=== PATIENT | female | born 1935 | race Caucasian/White ===

== ENCOUNTER 2016-12-31 20:20 | Inpatient (IN) | payer MEDICARE ==
[~2016-12-31] VITALS: Ht 152.4 cm; Wt 95.3 kg
[2016-12-31 20:32] VITALS: BP 154/66; PULSE 71; RESP 24; O2SAT 98
[2016-12-31] MEDS ORDERED: 0.9% Sodium Chloride 1,000 ML IV ONE (21:03)
[2016-12-31 21:26] LABS: BASOPHILS % (AUTO) 0.1 % (0-3); EOSINOPHILS % (AUTO) 0 % (0-5); MONOCYTES % (AUTO) 5.2 % (4-12); Mean Corpuscular Hemoglobin 28.4 pg (27.0-35.0); Mean Corpuscular Volume 87.8 fL (81-100); NEUTROPHILS % (AUTO) 90.4 % (40-74); Platelet Count 379 bil/L (150-400)
--- NOTE | 2016-12-31 21:39 | DRSVH ---
PROCEDURE: X-RAY CHEST ONE VIEW, PORTABLE ([id number]) INDICATIONS: altered mental status TECHNIQUE: One view of the chest was acquired. COMPARISON: [facility], CR, XR CHEST 2VW, 12/27/2016, 16:26. FINDINGS: Surgical changes and devices: Surgical clips in the left breast and axilla. Lungs and pleura: There is a focal density in the left lower lobe suspicious for remote pneumonia. N o pleural effusions or pneumothorax. Mediastinum: Mediastinal contours appear normal. Heart size is normal. Bones and chest wall: No suspicious bony lesions. Overlying soft tissues appear unremarkable. IMPRESSION: Focal density in the left lower lobe suspicious for pneumonia. Recommend followup to [facility]. Dictated by: Scooter Medeiros M.D. on 12/31/2016 at 21:36 Approved by: Scooter Medeiros M.D. on 12/31/2016 at 21:37
[2016-12-31 22:02] LABS: Magnesium 2.1 mg/dL (1.6-2.6)
[2016-12-31 22:13] LABS: APPEARANCE,URINE CLEAR (CLEAR,HAZY); COLOR,URINE STRAW (YELLOW); OCCULT BLOOD,URINE NEGATIVE (NEGATIVE); PH,URINE 6.5 (5.0-8.0); UROBILINOGEN,URINE NORMAL (NORMAL)
[2016-12-31] MEDS ORDERED: cefTRIAXone Inj 2,000 MG in Dextrose 5% Minibag Plus 50 ML IV ONE (23:30)
[2016-12-31] MEDS ORDERED: Azithromycin Inj 500 MG in Dextrose 5% w/Vial Mate 250 ML IV ONE (23:30)
[2016-12-31] MEDS ORDERED: Vancomycin Dose per Pharmacist XX ONE (23:35)
[2016-12-31] MEDS ORDERED: Cefepime Inj 2,000 MG in Dextrose 5% Minibag Plus 100 ML IV ONE (23:35)
[2016-12-31] MEDS ORDERED: levoFLOXacin Inj 750 MG in IV Premix 1 EACH IV ONE (23:35)
[2016-12-31] MEDS ORDERED: Vancomycin Inj 1,750 MG in 0.9% Sodium Chloride 500 ML IV ONE (23:45)
[2016-12-31] MEDS ORDERED: Alum-Mag Hydrox-Simeth 30 mL Suspension PO PRN (23:45)
[2016-12-31] MEDS ORDERED: Polyethylene Glycol (PEG) 17 Gm Powder PO PRN (23:45)
[2016-12-31] MEDS ORDERED: FLUT15.88 NS (23:54)
[2016-12-31] MEDS ORDERED: BECL8.7A6 INHALATION (23:54)
[2016-12-31] MEDS ORDERED: ATOR20TA PO (23:54)
[2016-12-31] MEDS ORDERED: FURO-129 PO (23:54)
[2016-12-31] MEDS ORDERED: SERT100T9 PO (23:54)
[2016-12-31] MEDS ORDERED: DONE10TA42 PO (23:54)
[2016-12-31] MEDS ORDERED: ALBU8.5H2 INHALATION (23:54)
[2016-12-31] MEDS ORDERED: MEMA28CA PO (23:54)
[2016-12-31] MEDS ORDERED: PRE20 PO (23:54)
[2017-01-01] VITALS (14 sets, daily range): BP systolic 124–174; BP diastolic 72–93; PULSE 63–100; RESP 15–22; O2SAT 96–98
--- NOTE | 2017-01-01 00:02 | ED.REPORT ---
HPI-General Illness Date of Service Jan 01, 2017 ED Provider: Mitch Way MD An 81 year old female with a history of dementia, hypertension, stroke and asthma is brought to the ED via EMS due to weakness. The pt was noted by [place] staff to be confused, weak and diaphoretic today with an elevated blood pressure. This is been persistent throughout the day without any notable alleviating or exacerbating factors. Described as abnormal, not typical for her. Per pt's family, the pt was also experiencing abnormal dyspnea on exertion with lower extremity edema eight days ago. She had a chest x-ray at that time, but the pt's family has not heard the results. The pt was put on a diuretic and Prednisone several days ago. The pt has been experiencing a rash for three months, but does not believe that this is related to her current symptoms. Nursing Notes Stated Complaint: ACUTE PNEUMONIA Chief Complaint: General Complaint Nursing Notes Reviewed: Yes Allergies: Coded Allergies: No Known Allergies (Unverified , 12/31/16) Scheduled Atorvastatin (Lipitor) 20 Mg Tablet 20 MG PO DAILY Beclomethasone Dipropionate (Qvar) 8.7 Gm Aer.w.adap 1 PUFF INHALATION BID Donepezil (Donepezil) 10 Mg Tablet 10 MG PO QAM Fluticasone Propionate (Fluticasone Propionate) 50 Mcg/Actuation Homer.susp 1 SPRAYS NS BID Furosemide (Lasix) 20 Mg Tablet 10 MG PO QAM Memantine HCl (Namenda-XR) 28 Mg Cap.spr.24 28 MG PO DAILY Prednisone (PredniSONE) 20 Mg Tablet 20 MG PO DAILY FOR 1 MORE DAY Sertraline HCl (Sertraline) 100 Mg Tablet 100 MG PO QAM Scheduled PRN Albuterol HFA (Proair HFA) 8.5 Gm Hfa.aer.ad 2 PUFFS INHALATION Q4H PRN PRN For Shortness of Breath General Time Seen by MD: 20:48 Chief Complaint Weakness Hx Obtained From: Patient, Other family..., EMS Arrived By: Ambulance Sudden in Onset?: No Symptom Duration: Since onset Recent Healthcare: Recent doctor visit Similar Sx Previous: No Past Medical History Past Medical History dementia stroke 2013 asthma Reports: Hypertension Past Surgical History lumpectomy Reports: Cholecystectomy, Hysterectomy Smoking History Never Smoker Social History lives at [facility] Other Social History: Good social support Review of Systems lower extremity edema hypertension Full Review of Systems Constitutional: Reports: Weakness - generalized Respiratory: Denies: Non-productive cough Cardiovascular: Reports: Dyspnea on exertion Musculoskeletal: Denies: Back pain, Neck pain Skin: Reports Diaphoresis, Reports Rash Neurologic: Reports: Confusion Complete sys rev & neg: except as marked. Physical Exam Constitutional: Well-developed, well-nourished elderly female sitting up in bed. Not diaphoretic. Head: Normocephalic and atraumatic. Mouth/Throat: Oropharynx is clear and moist. No oropharyngeal exudate. Eyes: EOM are normal. Pupils are equal, round, and reactive to light. Neck: Supple, no tracheal deviation. Cardiovascular: Normal rate, regular rhythm. Equal and intact distal pulses throughout. Pulmonary/Chest: Rhonchi at left base. No respiratory distress. Abdominal: Soft. No distension. There is no tenderness, rebound, or guarding. Bowel sounds present. Musculoskeletal: Range of motion grossly intact, moving all extremities. Trace edema to bilateral lower extremities. Neurological: AOx3. Grossly nonfocal exam. Strength and sensation intact and equal to bilateral upper and lower extremities. Skin: Warm and dry. Scattered excoriations to back and trunk, as well as her extremities. Psychiatric: Appropriate mood and affect. Behavior appears normal. Vital Signs Vital Signs Date Time Temp Pulse Resp B/P Pulse Ox O2 Delivery O2 Flow Rate FiO2 12/31/16 20:32 36.6 71 24 154/66 98 Room Air Initial VS: Reviewed Interpretation & Diagnostics Lab Results Interpretation Result Diagram: 12/31/16211912/31/162119 Test 12/31/16 21:20 12/31/16 21:32 12/31/16 21:45 White Blood Count 13.8th/mm3 (3.8-10.1) Red Blood Count 3.70mil/mm3 (3.90-5.20) Hemoglobin 10.5g/dL (12.0-15.6) Hematocrit 32.5% (35.0-46.0) Mean Corpuscular Volume 87.8fL (81-100) Mean Corpuscular Hemoglobin 28.4pg (27.0-35.0) Mean Corpuscular Hemoglobin Concent 32.3% (32.0-37.0) Red Cell Distribution Width 13.5% (12.3-15.4) Platelet Count 379bil/L (150-400) Neutrophils (%) (Auto) 90.4% (40-74) Lymphocytes (%) (Auto) 3.8% (14-46) Monocytes (%) (Auto) 5.2% (4-12) Eosinophils (%) (Auto) 0% (0-5) Basophils (%) (Auto) 0.1% (0-3) Sodium Level 127mEq/L (134-144) Potassium Level 5.0mEq/L (3.5-5.2) Chloride Level 89mEq/L (97-108) Carbon Dioxide Level 23mmol/L (18-29) Blood Urea Nitrogen 20mg/dL (8-27) Creatinine 0.99mg/dL (0.57-1.00) Estimat Glomerular Filtration Rate 77mL/min (>59) Glucose Level 127mg/dL (60-99) Calcium Level 9.1mg/dL (8.5-10.1) Magnesium Level 2.1mg/dL (1.6-2.6) Total Bilirubin 0.2mg/dL (0.0-1.2) Aspartate Amino Transf (AST/SGOT) 24U/L (0-50) Alanine Aminotransferase (ALT/SGPT) 24U/L (0-32) Alkaline Phosphatase 92U/L (25-165) Troponin T 0.010ug/L (0.0-0.011) Total Protein 7.1g/dL (6.4-8.4) Albumin 3.6g/dL (3.4-5.0) Procalcitonin 0.07ng/mL (0.00-0.08) Salicylates Level 3.0ug/mL (30-250) Acetaminophen Level 15.0ug/mL Rx (10-25) Alcohols < 10mg/dL (0-10) Lactic Acid Level 1.3mmol/L (0.4-2.0) Urine Color Straw (YELLOW) Urine Appearance Clear (CLEAR,HAZY) Urine pH 6.5 (5.0-8.0) Urine Specific Chandler 1.005 (1.003-1.035) Urine Protein Negativemg/dL (NEG,TRACE) Urine Glucose (UA) Negativemg/dL (NEGATIVE) Urine Ketones Negativemg/dL (NEGATIVE) Urine Occult Blood Negative (NEGATIVE) Urine Nitrite Negative (NEGATIVE) Urine Bilirubin Negative (NEGATIVE) Urine Urobilinogen Normalmg/dL (NORMAL) Urine Leukocyte Esterase Small (NEGATIVE) Urine RBC 0-2/hpf (0-2) Urine WBC 0-5/hpf (0-5) Urine Epithelial Cells Few/hpf (NONE-MOD) Urine Crystals None seen (NONE SEEN) Urine Bacteria Few/hpf (NONE-FEW) Urine Hyaline Casts None/lpf (NONE) Urine Granular Casts None seen (NONE SEEN) Urine Waxy Casts None seen (NONE SEEN) Urine Red Blood Cell Casts None seen (NONE SEEN) Urine White Blood Cell Casts None seen (NONE SEEN) Urine Mucus None seen (None Seen) Urine Trichomonas None seen (NONE SEEN) Urine Yeast None (NONE SEEN) Urinalysis Comment None Urine Culture Reflexed Indicated ECG Interpretation ECG Interpretation: normal sinus rhythm with a rate of 63 Time: 21:19 Interpreted by: ED physician X-Ray Chest Interpretation Chest Xray Interpretation: IMPRESSION: Focal density in the left lower lobe suspicious for pneumonia. Recommend followup to resolution. Dictated by: Scooter Medeiros M.D. on 12/31/2016 at 21:36 Approved by: Scooter Medeiros M.D. on 12/31/2016 at 21:37 Interpretation / Wet Read by: Interpret - Radiologist CT Head Interpretation CONCLUSION: No acute intracranial findings. Chronic changes detailed above. Small air-fluid level in the left sphenoid sinus. Interpretation / Wet Read by: Interpret - Radiologist Re-Eval/Medical Decision Med Decision/Clinical Course In summary, 81-year-old female presenting to the ED for evaluation of multiple complaints, most notably generalized weakness and not acting right, as well as dyspnea. Her generalized weakness and altered mental status was noted this morning. Upon initial evaluation, patient is well-appearing. Not having any significant complaints at this time, however history is somewhat limited secondary to her dementia. Family states that she has been having some dyspnea on exertion, no chest pain. Troponin negative; EKG with no acute ischemic changes. Rest of workup notable for a negative urinalysis, sodium of 127, lactic acid 1.3, white blood cell count of 13.8 with a left shift. Her chest x- ray demonstrates a left lower lobe pneumonia. Given the above, plan admission for further management and evaluation. Patient started on broad-spectrum antibiotics for healthcare associated pneumonia here in the ED. Family agreeable to the plan as stated, no further questions. Time of Eval: 23:20 Patient Status: Condition improved Re-Evaluation/Progress Note: Pt rechecked, who is stable. The diagnosis and plan for admission are discussed. The pt and her family understand and agree with the plan. All questions are addressed at this time. Consultation : Referral / Consult Name: Jolanta Galdamez DO Consulted With: Hospitalist Call Returned at: 23:30 Outsole Rounder: Agrees with eval, Agrees with plan, Accepts admit Note: Spoke with Dr. Galdamez, hospitalist, regarding pt's case. Dr. Galdamez agrees with the evaluation and agrees to admit the pt. Counseled Regarding: Diagnosis, Lab results, Need for admission Discharge & Departure Primary Impression: Community acquired pneumonia Additional Impressions: Hyponatremia Altered mental status Altered mental status type: unspecified Qualified Code: R41.82 - Altered mental status, unspecified Disposition: ADMITTED TO HOSPITAL Discharge Condition All VS Reviewed: Yes Condition: Stable Referrals: Titi Vaughn MD (PCP) Loreta Attestation Portions of this note were transcribed by Emiliana Clay. I, Dr. Way personally performed the history, physical exam and medical decision-making; I reviewed and confirmed the accuracy of the information in the transcribed note. Signed by: Loreta Fofana, 01/01/2017 and 0017. copies to: Titi Vaughn MD, William B MD Jan 01, 2017 00:02 EMILIANA CLAY Jan 01, 2017 00:11
[2017-01-01] MEDS ORDERED: Albuterol-Ipratropium 3 mL Inhalation Solution NEB SCH (00:30)
[2017-01-01] MEDS: 0.9% Sodium Chloride 1,000 ML IV SCH ×2 (01:00→21:13)
--- NOTE | 2017-01-01 01:00 | NUR ---
Admit MPC from ED A & O pt arrived to unit at 0020 via stretcher with a RN and family at bedside. Pt with short term memory loss since last CVA, per son. Resides at [facility]. [place] [facility] [place] Per report, ceftriaxone complete in ED, Levofloxacin and Vanco arrived with pt, Levo infusing now. BP noted to be high and pitting edema in MD SUSAN notified. IVF rate will be changing. Pt denies pain. c/o overall skin itching-ongoing for >2 months. Physician in to see pt. Med rec complete by Rx. Pt and family oriented to room and facility. Deny having questions. Bed in low position, upper rails up, call light in reach. Will continue to monitor.
[2017-01-01] MEDS ORDERED: Albuterol 2.5 mg/3 mL Inhalation Solution NEB PRN (01:30)
[2017-01-01] MEDS ORDERED: hydrOXYzine Pamoate 25 mg Capsule PO PRN (01:30)
[2017-01-01] MEDS: Heparin 5,000 Unit/mL Inj SUBQ SCH ×3 (01:43→16:43)
--- NOTE | 2017-01-01 01:51 | PCM.HPMED ---
Subjective Date of Service Dec 31, 2016 Primary Provider: Admitting Physician: Primary Care Physician: Titi Vaughn MD Attending Physician: . Admit Status: From the Emergency Department, Full Admit Chief Complaint: Shortness of breath. . History of Present Illness: Aure Tom is an 81-year-old female with a past medical history significant for dementia, short-term memory loss secondary to previous CVA, hyperlipidemia, and COPD who was brought to [facility] emergency department via EMS due to shortness of breath and generalized weakness. The patient's son and [id number] were present for the entire interview and provided significant detail regarding the history of present illness. The patient resides at [facility] and was noted to have profuse diaphoresis and dyspnea with exertion. Per the patient's family, she has significant short- term memory loss with dementia and is no more confused than at baseline. The patient endorses shortness of breath, malaise, and pruritus secondary to chronic rash. The patient was also noted to have developed lower extremity edema approximately 8 days ago that she was seen for by her PCP and an echocardiogram was ordered but not yet obtained to rule out heart failure. The patient has been on prednisone for chronic rash and she is scheduled to be seen by dermatology as an outpatient. The patient denies headache, vision changes, sore throat, rhinitis, chest pain, abdominal pain, nausea, vomiting, fever, chills, dysuria, diarrhea or constipation. Vital signs in the ER: Temperature 36.6. Pulse 71. Respiratory rate 24. Blood pressure 154/66. Pulse ox 98% on room air. She was given 1 L of NS and cefepime 2 g 1[address] PCP [address] Dr[address] Titi Vaughn. . Review of Systems: A comprehensive review of systems was conducted with the patient and found to be negative except as above in the History of Present Illness. . Allergies Coded Allergies: No Known Allergies (Unverified , 12/31/16) Home Medications Albuterol 2 puffs every 4 hours as needed for shortness of breath. Atorvastatin 20 mg daily at bedtime. Qvar 1 puff twice a day. Donepezil 10 mg daily. Flonase one spray intranasally twice a day Furosemide 10 mg daily. Memantine 20 mg daily. Prednisone 20 mg daily until 01/02/2017. Sertraline 100 mg daily. PMH 1. Dementia. 2. COPD/asthma. 3. Hyperlipidemia. 4. Depression. 5. Chronic kidney disease stage III. 6. Short-term memory loss secondary to CVA. . Surgical History 1. Hysterectomy. 2. Cholecystectomy. 3. Tonsillectomy. 4. Bilateral cataract extraction. 5. Right lumpectomy. . Family History Father who of an OR in his 70s. Mother who had dementia. Sr. who had dementia. She has a son with MS. . Social History Hx Alcohol Use: No Hx Substance Use: No Hx Tobacco Use: No Living Arrangement: Assisted Living ([place]) Additional Information The patient is 1. She was born and raised in [place]. She has 4 sons. 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 . Exam Vital Signs Vital Sign - Last Date Time Temp Pulse Resp B/P Pulse Ox O2 Delivery O2 Flow Rate FiO2 12/31/16 20:32 36.6 71 24 154/66 98 Room Air Exam General: Elderly female lying in bed and in no acute distress, well-developed, well-nourished, and appropriately interactive. No acute distress, well- developed, well-nourished, appropriately interactive HEENT: Normocephalic, atraumatic. External ears without defect. Pupils equal, round, and reactive to light. Anicteric sclerae, moist conjunctivae, and no lid lag. Oropharynx free of erythema and cobble stoning with moist mucosa. Neck: Supple with full range of motion. No jugular venous distension. No bruits. No lymphadenopathy or thyromegaly. Cardiovascular: Regular rate and rhythm with no murmurs, rubs, or gallops appreciated. Pulmonary: Scattered rhonchi predominantly at left base, no wheezes or rales. Normal respiratory effort with no use of accessory muscles. Abdomen: Soft, nontender, nondistended, bowel sounds present. No hepatosplenomegaly or masses appreciated. Extremities: No clubbing or cyanosis. Mild trace pitting edema to pretibial area bilaterally, left greater than right. Skin: Normal temperature, turgor, and texture; no ulcers, or subcutaneous nodules appreciated. Diffuse excoriations over her entire body. Neurological: Short-term memory deficit. Cranial nerves grossly intact. Known mild gait impairment but does not use assistive devices. Psychiatric: Normal mood and affect. Alert and oriented to person, place, and time. . Lab and Diagnostics Labs Item Value Date Time Lactic Acid Level 1.3 mmol/L 12/31/162131 Magnesium Level 2.1 mg/dL 12/31/162119 Total Bilirubin 0.2 mg/dL 12/31/162119 Aspartate Amino Transf (AST/SGOT) 24 U/L 12/31/162119 Alanine Aminotransferase (ALT/SGPT) 24 U/L 12/31/162119 Alkaline Phosphatase 92 U/L 12/31/162119 Troponin T 0.010 ug/L 12/31/162119 Total Protein 7.1 g/dL 12/31/162119 Albumin 3.6 g/dL 12/31/162119 Result Diagram: 12/31/16211912/31/162119 Microbiology Urine culture pending. Blood culture 2 pending. . X-Rays, CTs and MRIs X-RAY CHEST ONE VIEW, PORTABLE IMPRESSION: Focal density in the left lower lobe suspicious for pneumonia. Recommend followup to resolution. Dictated by: Scooter Medeiros M.D. on 12/31/2016 at 21:36 CT BRAIN WITHOUT CONTRAST Preliminary [place] read: No intracranial abnormalities. Chronic changes as noted above. Small air-fluid level in the left sphenoid sinus. Bg Duncan MD . 12-lead ECG EKG: Normal sinus rhythm, heart rate 63, prolonged QTC of 454 ms otherwise normal intervals, normal R-wave progression, no pathological Q waves or acute ischemic changes such as ST elevation or depression. . Assessment & Plan Aure Tom is an 81-year-old female with a past medical history significant for dementia, short-term memory loss secondary to CVA, hyperlipidemia, and COPD who was brought to [facility] emergency department via EMS due to shortness of breath and generalized weakness. Sepsis, acute, POA -patient presented with WBC >12 and RR >20 -source pulmonary -treatment as below 1. Acute community acquired pneumonia, present on admission. Active. - Patient presented with dyspnea, diaphoresis, malaise, and generalized weakness with leukocytosis of 13.8. - Differential diagnosis includes possible COPD exacerbation versus less likely new onset CHF. - Chest x-ray reviewed by admitting team on admission and demonstrated focal density in the left lower lobe suspicious for pneumonia, as above. - CT brain demonstrated no acute intracranial abnormalities, as above. - Lactic acid normal at 1.3. - Ordered complete pneumonia workup including: Legionella and strep pneumoniae urine antigens, respiratory viral PCR, sputum gram stain and culture, and blood cultures 2, pending. - Ordered MRSA screen, pending. - Ordered duo nebs 4 times a day while awake and albuterol nebs every 4 hours as needed for shortness of breath. - Continue cefepime 2 g every 12 hours and azithromycin 500 daily for possible COPD exacerbation. - Continue prednisone 20 mg daily for atopic dermatitis scheduled until tomorrow which would concurrently treat possible COPD exacerbation. - Ordered echocardiogram to rule out CHF. - Ordered pro-calcitonin, pending. - Continue furosemide 10 mg daily. - Continue supplemental oxygen as needed and titrate off as tolerated. 2. Acute hyponatremia, present on admission. Active. - Likely SIADH secondary to pneumonia. - Initial sodium of 127. - Received 1L of NS in the ER and continued conservative IV fluid hydration with NS at 80 ml/hr. Chronic problems: 3. Dementia, present on admission. Presumed stable. - The patient has history of a CVA 7-8 years ago with short-term memory loss, as well as, dementia. - Continue donepezil and memantine. 4. COPD, present on admission. Presumed stable. - Continue duo nebs 4 times a day while awake and albuterol nebs every 4 hours as needed for shortness of breath. - Continue Qvar twice daily. - Continue azithromycin daily for possible COPD exacerbation. - The patient has been on prednisone 20 mg for atopic dermatitis scheduled until tomorrow which would concurrently treat possible COPD exacerbation. 5. Hyperlipidemia, present on admission. - Continue atorvastatin 20 mg daily at bedtime. 6. Depression, present on admission. - Continue sertraline 100 mg daily. 7. Chronic kidney disease stage III, present on admission. - Baseline creatinine 1.0-1.3. Creatinine 0.99. - Avoid nephrotoxic agents. - Continue IV fluid hydration with NS at 80 ml/hr. 8. Atopic dermatitis, present on admission. Active. - Ordered hydroxyzine 25 mg every 6 hours as needed for pruritus. - Ordered hydrocortisone cream to be applied as needed for pruritus. - The patient is scheduled to see dermatology as an outpatient. PRN antiemetics: Zofran and Maalox. PRN bowel regimen: Senna and MiraLAX. PRN analgesics: Tylenol. Patient is admitted under inpatient status with expected length of stay greater than 2 midnights due to severity of presenting symptoms, risk of adverse event, and complexity of treatment plan. . VTE Prophylaxis: Sub-Q Heparin (Unfractionated) Resuscitation Status: CPR: Attempt Resuscitation Attending Statement The patient was seen and examined together with house staff on 01/01/2017 and I agree with the history, exam and plan as outlined in the note above. copies to: Titi Vaughn MD, Georgia M DO Dec 31, 2016 23:53 Jolanta Galdamez DO Jan 01, 2017 02:56
[2017-01-01 06:30] LABS: BASOPHILS % (AUTO) 0.3 % (0-3); EOSINOPHILS % (AUTO) 0.7 % (0-5); MONOCYTES % (AUTO) 8.1 % (4-12); Mean Corpuscular Hemoglobin 28.2 pg (27.0-35.0); Mean Corpuscular Volume 87.8 fL (81-100); NEUTROPHILS % (AUTO) 80.8 % (40-74); Platelet Count 328 bil/L (150-400)
--- NOTE | 2017-01-01 06:43 | NUR ---
Soft mitts/Sleep/fluids Pt up until 0500. Tossing and turning, scratching at open areas to point of bleeding. White, soft mitts applied in hopes of distraction, not very effective. Mitts seen off on several occasion. Pt noted to have >1600 UOP on shift and recd 700mL of IVF, including 300mL from the ED. Message sent to .
[2017-01-01] MEDS: Albuterol-Ipratropium 3 mL Inhalation Solution NEB SCH ×4 (07:58→20:47)
--- NOTE | 2017-01-01 08:00 | DRSVH ---
PROCEDURE: CT BRAIN WITHOUT CONTRAST ([id number]) INDICATIONS: altered mental status TECHNIQUE: Noncontrast 4.5 mm thick angled axial sections acquired from the foramen magnum to the vertex, with c oronal reformats. COMPARISON: [facility], CR, XR CHEST 1VW (PORTABLE), 12/31/2016, 21:00. FINDINGS: Image quality: Excellent. CSF spaces: Basal cisterns are patent. No extra-axial fluid collections. The ventricles are symmet ben in size and shape. Brain: No intracranial bleeds or masses. There is cerebral volume loss for age, with resultant vent ricular and sulcal prominence. There are periventricular and deep white matter chronic small vessel ischemic changes. There is intracranial internal carotid artery atherosclerosis. Skull and face: Calvarium and visualized facial bones appear intact, without suspicious lesions. Sinuses: Left sphenoid sinus fluid. Visualized sinuses and mastoids are otherwise clear. Mucoperiost eal thickening involves the bilateral maxillary sinus thurston. IMPRESSION: 1. No acute process. Left sphenoid sinusitis. Concordant with preliminary interpretation. Dictated by: Darlin Ham M.D. on 01/01/2017 at 7:56 Approved by: Darlin Ham M.D. on 01/01/2017 at 7:58
[2017-01-01] MEDS ORDERED: predniSONE 20 mg Tablet PO SCH (08:30)
--- NOTE | 2017-01-01 10:14 | NUR ---
Evaluation completed. Please go to "Notes" then click on "Assessments and Notes" (bottom left corner of screen). Then select appropriate discipline tab on top of screen.
[2017-01-01] MEDS ORDERED: Cefepime Inj 2,000 MG in Dextrose 5% Minibag Plus 100 ML IV SCH (11:00)
[2017-01-01] MEDS: Fluticasone 100 mCg Inhaler INHALATION SCH ×2 (12:18→20:00)
[2017-01-01] MEDS: Fluticasone 0.05% 15 Spray/2 Gm 16 Gm Nasal Spray NASAL SCH ×2 (12:22→20:00)
[2017-01-01] MEDS: predniSONE 20 mg Tablet PO SCH (12:22)
--- NOTE | 2017-01-01 13:12 | DRSVH ---
[facility] [address] [place] [address] Echocardiogram Report Name: HAZEL BREWSTER DStudy Date: 01/01/2017 Height: 60 in Hospital Exam Location: [facility] Weight: 215 lb Gender: Female BSA: 1.9 m2 : 1935 Age: 81 yrs BP: 163/75 mmHg Reason For Study: Dyspnea Ordering Physician: Jesus HospitalistPerformed By: Yordan Mckeon Referring Physician: MARBELLA CONDE Interpretation Summary The left ventricle is normal in size. Left ventricular systolic function is normal without focal wall motion abnormalities. The ejection fraction is estimated to be 60-65%. Assessment of diastolic parameters indicates normal left ventricular diastolic function and normal filling pressures. The right ventricle is not well visualized. The right ventricle grossly appears normal in size with probable normal systolic function. The right ventricular systolic pressure is estimated at 35 mmHg assuming a right atrial pressure of 3 mm Hg. The left atrial size is normal. Right atrium not well visualized. There is mild to moderate mitral regurgitation. There is mild to moderate tricuspid regurgitation. There is no other significant valvular heart disease. The aortic root is normal size. Procedure: A two-dimensional transthoracic echocardiogram with color flow and Doppler was performed. The study quality was technically adequate. There is no prior echocardiogram noted for this patient. The patient was in normal sinus rhythm during the exam. Left Ventricle: The left ventricle is normal in size. There is normal left ventricular wall thickness. Left ventricular systolic function is normal without focal wall motion abnormalities. The ejection fraction is estimated to be 60-65%. Assessment of diastolic parameters indicates normal left ventricular diastolic function and normal filling pressures. Right Ventricle: The right ventricle is not well visualized. The right ventricle grossly appears normal in size with probable normal systolic function. Atria: The left atrial size is normal. Right atrium not well visualized. The interatrial septum is intact with no evidence for an atrial septal defect. Mitral Valve: The mitral valve leaflets appear borderline thickened, but open well. There is mild to moderate mitral regurgitation. Aortic Valve: The aortic valve is normal in structure and function. No aortic regurgitation is present. Tricuspid Valve: The tricuspid valve is not well visualized, but is grossly normal. There is mild to moderate tricuspid regurgitation. The right ventricular systolic pressure is estimated at 35 mmHg assuming a right atrial pressure of 3 mm Hg. Pulmonic Valve: The pulmonic valve is not well visualized. There is no other significant valvular heart disease. Great Vessels: The aortic root is normal size. The dimensions of the ascending aorta are normal. The pulmonary artery is normal size. The IVC is of normal diameter and collapses greater than 50% with a sniff. This suggests a low right atrial pressure of 3 mm Hg. Pericardium/ Pleura There is no pericardial effusion. There is no pleural effusion. MMode/2D Measurements & Calculations LVIDd: 4.4 cm LA A2 area LVOT diam: 1.9 cm LV waggoner. diameter/BSA LVIDs: 2.6 cm Ao root diam (cm/m^2): 2.3 FS: 41.7 % EPSS: 0.22 cm LA A4 area asc Aorta Diam LA length Ao Arch Diam (vol): 4.8 cm (Prox Trans): LA vol: 52.4 ml .2 cm LA vol index IVC diam : 2.1 cm LV sys. diameter/BSA (cm/m^2): 1.3 Doppler Measurements & Calculations Ao V2 max MV E max pedro MV E/A: 1.7 TR max pedro : 127.6 cm/sec : 114.1 cm/sec Med Peak E' Pedro : 283.9 cm/sec Ao max P.5 mmHg MV A max pedro TR max PG Ao mean P.5 mmHg : 66.1 cm/sec E/E' med: 17.7 : 32.3 mmHg LVOT Max Pedro Lat Peak E' Pedro PA V2 max : 90.7 cm/sec : 88.7 cm/sec E/E' lat: 13.7 PA mean PG EMILY(I,D): 2.0 cm E/e' average : 2.0 mmHg sev ratio: 0.70 MV dec time: 0.15 sec Ao V2 mean LV V1 max PG PA V2 mean : 89.4 cm/sec : 68.9 cm/sec Ao V2 VTI: 28.1 cmLV V1 VTI PA pr(Accel) : 19.7 cm : 40.5 mmHg EMILY(V,D): 2.0 cm2 EMILY indexed to BSA (cm^2/m^2): 1.1 Reading Physician:PM
--- NOTE | 2017-01-01 14:36 | NUR ---
Respiratory Faint wheezes heard in bilateral upper lobes. Denies SOB or cough. Afebrile entire shift. See VS flow sheet. A/o to place and name. Extremely forgetful yet easily redirected. Continue frequent rounding. Son updated with POC.
--- NOTE | 2017-01-01 15:33 | PCM.PNMED ---
Subjective Date of Service Jan 01, 2017 Subjective Patient alert and oriented to place. She does not know why she was brought. She reportedly had generalized weakness yesterday with lethargy. afebrile. Denies any cough or dyspnea. Denies urinary complaints. Denies facial pain. CT scan shows sphenoid sinusitis Exam Vital Signs Vital Sign - Last Date Time Temp Pulse Resp B/P Pulse Ox O2 Delivery O2 Flow Rate FiO2 01/01/17 11:48 68 16 97 Room Air 01/01/17 09:46 36.7 154/79 Intake and Output 12/31/16 12/31/16 01/01/17 Cumulative From/Thru 15:00 23:00 07:00 12/31/16 20:32 - 01/01/17 05:50 Intake Total 300 ml 428 ml 728 ml Output Total 1650 ml 1650 ml Balance 300 ml -1222 ml -922 ml Intake Oral 0 ml 0 ml IV Total 300 ml 428 ml 728 ml Output Urine Total 1650 ml 1650 ml Exam General: Elderly female lying in bed and in no acute distress, well-developed, well-nourished, and appropriately interactive. No acute distress, well- developed, well-nourished, appropriately interactive HEENT: Normocephalic, atraumatic. External ears without defect. Pupils equal, round, and reactive to light. Anicteric sclerae, moist conjunctivae, and no lid lag. Oropharynx free of erythema and cobble stoning with moist mucosa. Neck: Supple with full range of motion. No jugular venous distension. No bruits. No lymphadenopathy or thyromegaly. Cardiovascular: Regular rate and rhythm with no murmurs, rubs, or gallops appreciated. Pulmonary: Scattered rhonchi predominantly at left base, no wheezes or rales. Normal respiratory effort with no use of accessory muscles. Abdomen: Soft, nontender, nondistended, bowel sounds present. No hepatosplenomegaly or masses appreciated. Extremities: No clubbing or cyanosis. Mild trace pitting edema to pretibial area bilaterally, left greater than right. Skin: Normal temperature, turgor, and texture; no ulcers, or subcutaneous nodules appreciated. Diffuse excoriations over her entire body. Neurological: Short-term memory deficit. Cranial nerves grossly intact. Known mild gait impairment but does not use assistive devices. Psychiatric: Normal mood and affect. Alert and oriented to person, place, and time. . IVs and Medications Medications Reviewed: Medications were reviewed in detail Lab and Diagnostics Result Diagram: 01/01/1761901/01/17619 Microbiology Urine culture pending. Blood culture 2 pending. . X-Rays, CTs and MRIs X-RAY CHEST ONE VIEW, PORTABLE IMPRESSION: Focal density in the left lower lobe suspicious for pneumonia. Recommend followup to resolution. Dictated by: Scooter Medeiros M.D. on 12/31/2016 at 21:36 CT BRAIN WITHOUT CONTRAST Preliminary [place]k read: No intracranial abnormalities. Chronic changes as noted above. Small air-fluid level in the left sphenoid sinus. Bg Duncan MD . 12-lead ECG EKG: Normal sinus rhythm, heart rate 63, prolonged QTC of 454 ms otherwise normal intervals, normal R-wave progression, no pathological Q waves or acute ischemic changes such as ST elevation or depression. . Cardiac Echo Impressions Interpretation Summary The left ventricle is normal in size. Left ventricular systolic function is normal without focal wall motion abnormalities. The ejection fraction is estimated to be 60-65%. Assessment of diastolic parameters indicates normal left ventricular diastolic function and normal filling pressures. The right ventricle is not well visualized. The right ventricle grossly appears normal in size with probable normal systolic function. The right ventricular systolic pressure is estimated at 35 mmHg assuming a right atrial pressure of 3 mm Hg. The left atrial size is normal. Right atrium not well visualized. There is mild to moderate mitral regurgitation. There is mild to moderate tricuspid regurgitation. There is no other significant valvular heart disease. The aortic root is normal size. 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 # Generalized weakness/lethargy,poa -Due to dehydration due to poor oral intake due to dementia causing hyponatremia -Treated with IV fluids and responded well -Patient's mentation back to baseline. Regaining strength -Continue normal saline at 80 ml/h -CT brain shows sphenoidal sinusitis. No symptoms. No sinus tenderness. Hold off antibiotics #. Acute hyponatremia, present on admission. Active. - Due to dehydration due to poor oral intake due to dementia - Initial sodium of 127. Improved to 136 . Sodium improved a little over goal correction. Hyponatremia due to dehydration and acute . no need to lower it with 1/2 NS - Received 1L of NS in the ER and continued conservative IV fluid hydration with NS at 80 ml/hr. #. Initially suspected Acute community acquired pneumonia, present on admission. Ruled out - Patient presented with diaphoresis, malaise, and generalized weakness with leukocytosis of 13.8. - Differential diagnosis includes possible COPD exacerbation versus pneumonia - Chest x-ray focal density in the left lower lobe suspicious for pneumonia, as above. - CT brain demonstrated no acute intracranial abnormalities, as above. - Lactic acid normal at 1.3. - Legionella and strep pneumoniae urine antigens negative,, sputum gram stain and culture pending, and blood cultures 2, pending. MRSA screen negative - Ordered duo nebs 4 times a day while awake and albuterol nebs every 4 hours as needed for shortness of breath. - Initially started with cefepime 2 g every 12 hours , azithromycin 500 daily for possible COPD exacerbation. Patient afebrile. No complaints of cough or dyspnea. Shortly had generalized weakness yesterday which is improving. Clinically does not look to have infection. Pro-calcitonin negative. Discontinue all antibiotics - Continue prednisone 20 mg daily for atopic dermatitis scheduled until tomorrow which would concurrently treat possible COPD exacerbation. - echocardiogram unremarkable as above - Continue furosemide 10 mg daily. - Continue supplemental oxygen as needed and titrate off as tolerated. #Initially suspected Sepsis, ruled out -patient presented with WBC >12 and RR >20 -No clinical evidence of sepsis.procal negative Chronic problems: #. Dementia, present on admission. Presumed stable. - The patient has history of a CVA 7-8 years ago with short-term memory loss, as well as, dementia. - Continue donepezil and memantine. -no Nemenda in pharmacy,son will try to get it from [place], ok to hold for now #. COPD, present on admission. Presumed stable. - Continue duo nebs 4 times a day while awake and albuterol nebs every 4 hours as needed for shortness of breath. - Continue Qvar twice daily.. - The patient has been on prednisone 20 mg for atopic dermatitis scheduled until tomorrow which would concurrently treat possible COPD exacerbation. discontinue prednisone tomorrow #. Hyperlipidemia, present on admission. - Continue atorvastatin 20 mg daily at bedtime. #. Depression, present on admission. - Continue sertraline 100 mg daily. #. Chronic kidney disease stage III, present on admission. - Baseline creatinine 1.0-1.3. Creatinine 0.99. - Avoid nephrotoxic agents. - Continue IV fluid hydration with NS at 80 ml/hr. #. Atopic dermatitis, present on admission. Active. - Ordered hydroxyzine 25 mg every 6 hours as needed for pruritus. - Ordered hydrocortisone cream to be applied as needed for pruritus. - The patient is scheduled to see dermatology as an outpatient. PRN antiemetics: Zofran and Maalox. PRN bowel regimen: Senna and MiraLAX. PRN analgesics: Tylenol. Patient is admitted under inpatient status with expected length of stay greater than 2 midnights due to severity of presenting symptoms, risk of adverse event, and complexity of treatment plan. Disposition: Possible discharge tomorrow if continues to improve.Back to [facility] versus SNF pending PT eval VTE Prophylaxis: Sub-Q Heparin (Unfractionated) VTE Mechanical Devices: Intermittant Pneumatic CD Resuscitation Status: CPR: Attempt Resuscitation Rigoberto Kirby MD Jan 01, 2017 15:33
[2017-01-01] MEDS: MEMANTINE 28 MG PO SCH (16:10)
--- NOTE | 2017-01-01 16:10 | NUR ---
Home medication - Namenda [id number]-[id number] stated family will bring Namenda from home to [facility] tomorrow.
--- NOTE | 2017-01-01 17:05 | NUR ---
Evaluation completed. Please go to "Notes" then click on "Assessments and Notes" (bottom left corner of screen). Then select appropriate discipline tab on top of screen.
[2017-01-02 01:11] VITALS: BP 118/63; PULSE 84; RESP 18; O2SAT 97
[2017-01-02] MEDS: Heparin 5,000 Unit/mL Inj SUBQ SCH ×2 (01:39→08:33)
[2017-01-02 04:18] VITALS: BP 138/77; PULSE 84; RESP 22; O2SAT 96
[2017-01-02 06:25] LABS: BASOPHILS % (AUTO) 0.2 % (0-3); EOSINOPHILS % (AUTO) 0.2 % (0-5); MONOCYTES % (AUTO) 7.9 % (4-12); Platelet Count 328 bil/L (150-400)
[2017-01-02 07:48] VITALS: PULSE 73; RESP 16; O2SAT 98
[2017-01-02] MEDS: Albuterol-Ipratropium 3 mL Inhalation Solution NEB SCH ×2 (07:48→11:12)
[2017-01-02] MEDS: MEMANTINE 28 MG PO SCH (08:30)
[2017-01-02] MEDS: predniSONE 20 mg Tablet PO SCH (08:34)
[2017-01-02] MEDS: Fluticasone 0.05% 15 Spray/2 Gm 16 Gm Nasal Spray NASAL SCH (08:35)
[2017-01-02] MEDS: Fluticasone 100 mCg Inhaler INHALATION SCH (08:36)
[2017-01-02 09:32] VITALS: BP 158/73; PULSE 86; RESP 20; O2SAT 98
--- NOTE | 2017-01-02 10:55 | NUR ---
Social Work-initial assessment/readiness for discharge/ multidisciplinary rounds: Data:See initial assessment. Pt is a 81 y/o female who was admitted on 12/31/16 for acute pneumonia per H&P. Pt's insurance is [employer] and PCP is Titi Vaughn MD. EMR Reviewed. Pt's readmission score is 3-high risk. JACOB met with pt and son Sylvain [phone] at bedside to discuss discharge planning, SW role explained. Pt has baseline dementia.Pt resides at [facility] where they assist with meals and bathing, dressing. Son and assist with medication,etc. Son confirms pt does not normally use a fww, but has one and will encourage pt to use this post discharge. Pt has no HH or SNF history. Pt has no detention care insurance or VA benefits. SW discussed DPOA/ advanced directive, son confirms this has been completed, SW encouraged a copy to be brought in. PT has seen pt and cleared pt for return to [facility]. SW placed a call to Alyse at [facility] who confirms they will not need to come and complete re-assessment if pt discharges today or tomorrow. Updated clinicals have been faxed to [facility] [phone]. Son confirms he will provide transport home. SW provided pt and son with discharge planning checklist and encouraged them to call with any questions. SW provided phone number and plan on white board in room. SW will continue to follow. Assessment:Pt who resides in Assisted living. Plan:Pt to discharge back to [facility] when medically stable. [facility] will not need to come and complete re-assessment of pt if she discharges today or tomorrow. PT has cleared pt for return to [facility]. SW will continue to follow. LOKESH Vinson Addendum: 01/02/17 at 1103 by MARY STORY Amended: Links added.
[2017-01-02 11:13] VITALS: PULSE 79; RESP 16; O2SAT 97
[2017-01-02 13:28] VITALS: BP 146/70; PULSE 81; RESP 20; O2SAT 97
--- NOTE | 2017-01-02 13:48 | NUR ---
Inpatient Wound Nurse Patient seen by [facility] RN for skin eval. Patient seated in bedside chair, described intense, chronic pruritis that began in October, which she associates with resolution of shingles. Patient and her son were questioned regarding recent changes to meds, diet, and environmental exposures. No source for pruritis was identified. Multiple crusted areas observed over bilateral UE and LE and abdomen, all about 1 cm L x 1 cm W. No actively open or draining wounds observed. Panniculus without open areas, yeasty odor but no drainage or accumulated debris. Patient was instructed to try cool compresses on areas of most intense pruritis. With no evident origin for wounds, patient may be benefitted by evaluation for dermatotillimania (skin picking disorder). Wound RN will not follow unless further, specific wound identified.
--- NOTE | 2017-01-02 16:33 | NUR ---
spiritual care: pt request conversational visit. pt sitting in chair and described several month experience of skin itching as her biggest concern. Pt and son explained unsuccessful seeking of care and treatment. Pt unclear on current medical condition except she is feeling better. Pt repeated content, apologizing for her memory lapses and expressing appreciation for her family, (4 sons) caring atmosphere, her 2 long marriages, and especially her lifelong willem. Pt recalled several hymn titles and longer term memories, and participated in lords prayer.
--- NOTE | 2017-01-02 17:00 | DRSVH ---
PROCEDURE: X-RAY CHEST, TWO VIEWS ([id number]) INDICATIONS: Follow up for possible Pneumonia TECHNIQUE: 2 views of the chest were acquired. COMPARISON: [facility], CR, XR CHEST 1VW (PORTABLE), 12/31/2016, 21:00. FINDINGS: Surgical changes and devices: Left breast and axillary surgical clips redemonstrated. Lungs and pleura: No pleural effusions or pneumothorax. Lungs are clear, aside from minimal pass in volving the left lung base decreased from prior exam.. Mediastinum: Mediastinal contours are normal. Heart size is normal. Bones and chest wall: No suspicious bony abnormalities. Soft tissues appear unremarkable. IMPRESSION: Resolving left basilar atelectasis versus pneumonia. Dictated by: Domingo Urbina A Interpreted: Riky [facility] MD on 01/02/2017 at 16:06 Approved by: iRky [facility] M.D. on 01/02/2017 at 16:58
--- NOTE | 2017-01-02 17:20 | PCM.DIMED ---
Discharge Instructions Date of Service Jan 02, 2017 Dates of Hospitalization Dec 31, 2016 at 23:59 Discharge Diagnosis Discharge Diagnosis Community Acquired Pneumonia Diet Discharge Diet: Heart Healthy Activity Discharge Activity: No restrictions Call your provider Call your provider for: Fever or Chills, Shortness of breath, Bleeding, Chest pain, Vomitting, Excessive diarrhea, Weakness (unilateral) Patient Instructions Follow-up Provider: Titi Vaughn MD Follow-up with PCP in: 1 week Aydin Chi MD Jan 02, 2017 17:20
[2017-01-02] MEDS ORDERED: ZIT250 PO (17:22)
--- NOTE | 2017-01-02 18:10 | NUR ---
Discharge Note Pt returned to baseline state of confusion per family. Up with FWW and SBA. PIV removed completely intact prior to d/c. Report called to [facility] re: pt and plan of care for facility. D/c instructions reviewed with son, he was given opportunity to ask questions and verbalized understanding of plan. Aware to make f/u apt with PCP for 1 week. Abx were sent to pt's prefered pharmacy, [facility] [place]. Pt left with [facility] IMPREGNATOR and son in a w/c.
--- NOTE | 2017-01-03 01:16 | PCM.DC.MED ---
Discharge Summary Date of Service Jan 02, 2017 Dates of Hospitalization Date of Hospital Admission Dec 31, 2016 at 23:59 Date of Discharge: Jan 03, 2017 Providers: Admitting Physician: Jolanta Galdamez DO Primary Care Physician: Titi Vaughn MD Attending Physician: Aydin Chi MD Diagnosis at Time of Discharge Diagnosis at Time of Discharge Community Acquired Pneumonia Procedures XRay, CTs & MRIs X-RAY CHEST ONE VIEW, PORTABLE IMPRESSION: Focal density in the left lower lobe suspicious for pneumonia. Recommend followup to resolution. Dictated by: Scooter Medeiros M.D. on 12/31/2016 at 21:36 CT BRAIN WITHOUT CONTRAST Preliminary [place] read: No intracranial abnormalities. Chronic changes as noted above. Small air-fluid level in the left sphenoid sinus. Bg Duncan MD . ECG 12 Lead EKG: Normal sinus rhythm, heart rate 63, prolonged QTC of 454 ms otherwise normal intervals, normal R-wave progression, no pathological Q waves or acute ischemic changes such as ST elevation or depression. . Cardiac Echo Impression Interpretation Summary The left ventricle is normal in size. Left ventricular systolic function is normal without focal wall motion abnormalities. The ejection fraction is estimated to be 60-65%. Assessment of diastolic parameters indicates normal left ventricular diastolic function and normal filling pressures. The right ventricle is not well visualized. The right ventricle grossly appears normal in size with probable normal systolic function. The right ventricular systolic pressure is estimated at 35 mmHg assuming a right atrial pressure of 3 mm Hg. The left atrial size is normal. Right atrium not well visualized. There is mild to moderate mitral regurgitation. There is mild to moderate tricuspid regurgitation. There is no other significant valvular heart disease. The aortic root is normal size. 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 The patient's son and [id number] were present for the entire interview and provided significant detail regarding the history of present illness. The patient resides at [facility] and was noted to have profuse diaphoresis and dyspnea with exertion. Per the patient's family, she has significant short- term memory loss with dementia and is no more confused than at baseline. The patient endorses shortness of breath, malaise, and pruritus secondary to chronic rash. The patient was also noted to have developed lower extremity edema approximately 8 days ago that she was seen for by her PCP and an echocardiogram was ordered but not yet obtained to rule out heart failure. The patient has been on prednisone for chronic rash and she is scheduled to be seen by dermatology as an outpatient. The patient denies headache, vision changes, sore throat, rhinitis, chest pain, abdominal pain, nausea, vomiting, fever, chills, dysuria, diarrhea or constipation. Vital signs in the ER: Temperature 36.6. Pulse 71. Respiratory rate 24. Blood pressure 154/66. Pulse ox 98% on room air. She was given 1 L of NS and cefepime 2 g 1. The patient was admitted to the hospitalist service for further evaluation and treatment. . Hospital Course Aure Tom is an 81-year-old female with a past medical history significant for dementia, short-term memory loss secondary to CVA, hyperlipidemia, and COPD who was brought to [facility] emergency department via EMS due to shortness of breath and generalized weakness. The patient was admitted to the hospitalist service for further evaluation and treatment. # Generalized weakness/lethargy, present on admission -Due to dehydration due to poor oral intake due to dementia causing hyponatremia -Treated with IV fluids and responded well -Patient's mentation back to baseline. Regaining strength -Continue normal saline at 80 ml/h -CT brain shows sphenoidal sinusitis. No symptoms. No sinus tenderness. #. Acute hyponatremia, present on admission. Active. - Due to dehydration due to poor oral intake due to dementia - Initial sodium of 127. Improved to 136 . Sodium improved a little over goal correction. Hyponatremia due to dehydration and acute . no need to lower it with 1/2 NS - Received 1L of NS in the ER and continued conservative IV fluid hydration with NS at 80 ml/hr. #. Initially suspected Acute community acquired pneumonia, present on admission. Ruled out - Patient presented with diaphoresis, malaise, and generalized weakness with leukocytosis of 13.8. - Differential diagnosis includes possible COPD exacerbation versus pneumonia - Chest x-ray focal density in the left lower lobe suspicious for pneumonia, as above. Repeat chest x-ray shows improvement in this infiltrate. - CT brain demonstrated no acute intracranial abnormalities, as above. - Lactic acid normal at 1.3. - Legionella and strep pneumoniae urine antigens negative,, sputum gram stain and culture pending, and blood cultures 2, pending. MRSA screen negative - Ordered duo nebs 4 times a day while awake and albuterol nebs every 4 hours as needed for shortness of breath. - Initially started with cefepime 2 g every 12 hours , azithromycin 500 daily for possible COPD exacerbation. Patient afebrile. No complaints of cough or dyspnea. Shortly had generalized weakness yesterday which is improving. Clinically does not look to have infection. Pro-calcitonin negative. Patient was continued on azithromycin 500 mg by mouth daily and will continue this antibiotic at home. - Continue prednisone 20 mg daily for atopic dermatitis scheduled until tomorrow which would concurrently treat possible COPD exacerbation. Prednisone was discontinued prior to discharge. - The patient's echocardiogram unremarkable as above - Continue furosemide 10 mg daily. - Continue supplemental oxygen as needed and titrate off as tolerated. # Initially suspected Sepsis, ruled out -patient presented with WBC >12 and RR >20 -No clinical evidence of sepsis.procal negative Chronic problems: #. Dementia, present on admission. Presumed stable. - The patient has history of a CVA 7-8 years ago with short-term memory loss, as well as, dementia. - Continue donepezil and memantine. -no Nemenda in pharmacy,son will try to get it from [place], ok to hold for now #. COPD, present on admission. Presumed stable. - Continue duo nebs 4 times a day while awake and albuterol nebs every 4 hours as needed for shortness of breath. - Continue Qvar twice daily.. - The patient has been on prednisone 20 mg for atopic dermatitis scheduled until tomorrow which would concurrently treat possible COPD exacerbation. discontinue prednisone tomorrow #. Hyperlipidemia, present on admission. - Continue atorvastatin 20 mg daily at bedtime. #. Depression, present on admission. - Continue sertraline 100 mg daily. #. Chronic kidney disease stage III, present on admission. - Baseline creatinine 1.0-1.3. Creatinine 0.99. - Avoid nephrotoxic agents. - Continue IV fluid hydration with NS at 80 ml/hr. #. Atopic dermatitis, present on admission. Active. - Ordered hydroxyzine 25 mg every 6 hours as needed for pruritus. - Ordered hydrocortisone cream to be applied as needed for pruritus. - The patient is scheduled to see dermatology as an outpatient. PRN antiemetics: Zofran and Maalox. PRN bowel regimen: Senna and MiraLAX. PRN analgesics: Tylenol. Disposition: Patient is to be discharged home today in the care of her son Sylvain. Sylvain is agreeable with this plan and discussed with him at length. Exam Vital Signs (Last) Date Time Temp Pulse Resp B/P Pulse Ox O2 Delivery O2 Flow Rate FiO2 01/02/17 14:59 Room Air 01/02/17 13:28 36.6 81 20 146/70 97 Exam General: Patient is in no apparent distress and ablating with physical therapy around the hallways with her walker. Patient is very anxious to go home. HEENT: Head is atraumatic and normocephalic. Eyes: Pupils are equally round and reactive to light and accommodation. Extraocular muscles are intact. Sclera are white, anicteric. Subconjunctival mucosa is pink. Ears and nose are unremarkable. Oropharynx: There is no mucosal lesions, there is no thrush, there is no pharyngitis. Neck: Is supple, there are no nodes, or masses or tenderness. Chest: Is clear to auscultation and percussion. There are no rales, rhonchi, wheezes or rubs. Heart: Rate, rhythm is regular. There is no murmur, rub or gallop. Abdomen: Good bowel sounds are present. Abdomen is soft, nontender, no organomegaly or masses were appreciated. Extremities: Are symmetrical and well perfused. There is no edema, there is no cellulitis, no rash. Neurologic: There are no focal neurological deficits. Cranial nerves II through XII are intact. There are no sensory or motor deficits. Patient has short-term memory loss and repeats the same question over and over again. Psychiatric: Patients mood is calm and shows no sign of agitation. Genital: Deferred Rectal: Deferred Test 12/31/16 21:20 12/31/16 21:32 12/31/16 21:45 12/31/16 21:50 Magnesium Level 2.1mg/dL (1.6-2.6) Troponin T 0.010ug/L (0.0-0.011) Salicylates Level 3.0ug/mL (30-250) Acetaminophen Level 15.0ug/mL Rx (10-25) Alcohols < 10mg/dL (0-10) Lactic Acid Level 1.3mmol/L (0.4-2.0) Urine Color Straw (YELLOW) Urine Appearance Clear (CLEAR,HAZY) Urine pH 6.5 (5.0-8.0) Urine Specific [place] 1.005 (1.003-1.035) Urine Protein Negativemg/dL (NEG,TRACE) Urine Glucose (UA) Negativemg/dL (NEGATIVE) Urine Ketones Negativemg/dL (NEGATIVE) Urine Occult Blood Negative (NEGATIVE) Urine Nitrite Negative (NEGATIVE) Urine Bilirubin Negative (NEGATIVE) Urine Urobilinogen Normalmg/dL (NORMAL) Urine Leukocyte Esterase Small (NEGATIVE) Urine RBC 0-2/hpf (0-2) Urine WBC 0-5/hpf (0-5) Urine Epithelial Cells Few/hpf (NONE-MOD) Urine Crystals None seen (NONE SEEN) Urine Bacteria Few/hpf (NONE-FEW) Urine Hyaline Casts None/lpf (NONE) Urine Granular Casts None seen (NONE SEEN) Urine Waxy Casts None seen (NONE SEEN) Urine Red Blood Cell Casts None seen (NONE SEEN) Urine White Blood Cell Casts None seen (NONE SEEN) Urine Mucus None seen (None Seen) Urine Trichomonas None seen (NONE SEEN) Urine Yeast None (NONE SEEN) Urinalysis Comment None Urine Culture Reflexed Indicated Urine Legionella pneumophilia Ag Negative (Negative) Test 01/01/17 06:20 01/02/17 06:00 Hemoglobin A1c 5.8% (4.8-5.6) White Blood Count 11.9th/mm3 (3.8-10.1) Red Blood Count 3.46mil/mm3 (3.90-5.20) Hemoglobin 9.7g/dL (12.0-15.6) Hematocrit 30.8% (35.0-46.0) Mean Corpuscular Volume 89.0fL (81-100) Mean Corpuscular Hemoglobin 28.0pg (27.0-35.0) Mean Corpuscular Hemoglobin Concent 31.5% (32.0-37.0) Red Cell Distribution Width 13.8% (12.3-15.4) Platelet Count 328bil/L (150-400) Neutrophils (%) (Auto) 83.0% (40-74) Lymphocytes (%) (Auto) 8.4% (14-46) Monocytes (%) (Auto) 7.9% (4-12) Eosinophils (%) (Auto) 0.2% (0-5) Basophils (%) (Auto) 0.2% (0-3) Sodium Level 136mEq/L (134-144) Potassium Level 4.4mEq/L (3.5-5.2) Chloride Level 99mEq/L (97-108) Carbon Dioxide Level 25mmol/L (18-29) Blood Urea Nitrogen 17mg/dL (8-27) Creatinine 1.13mg/dL (0.57-1.00) Estimat Glomerular Filtration Rate 66mL/min (>59) Glucose Level 101mg/dL (60-99) Calcium Level 8.6mg/dL (8.5-10.1) Total Bilirubin 0.2mg/dL (0.0-1.2) Aspartate Amino Transf (AST/SGOT) 14U/L (0-50) Alanine Aminotransferase (ALT/SGPT) 19U/L (0-32) Alkaline Phosphatase 75U/L (25-165) Total Protein 5.8g/dL (6.4-8.4) Albumin 3.3g/dL (3.4-5.0) Procalcitonin 0.05ng/mL (0.00-0.08) Thyroid Stimulating Hormone (TSH) 2.810uIU/mL (0.450-4.500) Microbiology Results Urine culture pending. Blood culture 2 pending. . Discharge Medications Discharge Medications Atorvastatin (Lipitor) 20 Mg Tablet 20 MG PO DAILY (Reported) Azithromycin (Zithromax) 250 Mg Tablet 500 MG PO DAILY Prescribed by: DERIC CHI MD Beclomethasone Dipropionate (Qvar) 8.7 Gm Aer.w.adap 1 PUFF INHALATION BID ( Reported) Donepezil (Donepezil) 10 Mg Tablet 10 MG PO QAM (Reported) Fluticasone Propionate (Fluticasone Propionate) 50 Mcg/Actuation Shirley.susp 1 SPRAYS NS BID (Reported) Furosemide (Lasix) 20 Mg Tablet 10 MG PO QAM (Reported) Memantine HCl (Namenda-XR) 28 Mg Cap.spr.24 28 MG PO DAILY (Reported) Sertraline HCl (Sertraline) 100 Mg Tablet 100 MG PO QAM (Reported) As needed Albuterol HFA (Proair HFA) 8.5 Gm Hfa.aer.ad 2 PUFFS INHALATION Q4H PRN PRN For Shortness of Breath (Reported) Followup Plan Disposition: Patient is being discharged to her "[place]" home with her son Sylvain. Discharge Diet: Heart Healthy Discharge Activity: No restrictions Follow-up Provider: Titi Vaughn MD Follow-up with PCP in: 1 week Time spent Time spent on discharging this patient was greater than 35 minutes, over half of which was involved in counseling and coordination of care. Aydin Chi MD Jan 03, 2017 01:16
== END 2017-01-02 18:11 | disposition home or self-care (01) | DRG 191 ==
LOC: SED 20:20 → EDUNIT# 20:20 → EDBD 20:20 → MPC 23:59
PROVIDERS: ADMIT Internal Medicine; ATTEND Internal Medicine Infectious Disease
DX: J44.1 Chronic obstructive pulmonary disease with (acute) exacerbation (principal); E87.1 Hypo-osmolality and hyponatremia; I10 Essential (primary) hypertension; F03.90 Unspecified dementia, unspecified severity, without behavioral disturbance, psychotic disturbance, mood disturbance, and anxiety; J45.909 Unspecified asthma, uncomplicated; E78.5 Hyperlipidemia, unspecified; L20.9 Atopic dermatitis, unspecified; J32.3 Chronic sphenoidal sinusitis; E86.0 Dehydration; Z79.51 Long term (current) use of inhaled steroids; Z86.73 Personal history of transient ischemic attack (TIA), and cerebral infarction without residual deficits